=== PATIENT | female | born 1995 | race Caucasian/White ===

== ENCOUNTER 2018-02-26 20:46 | Emergency (ER) | payer SELFPAY, OTHER ==
[2018-02-26] MEDS: PENICILLIN V POTASSIUM 500 MG TAB PO (22:11)
== END 2018-02-26 22:24 | disposition home or self-care (01) ==
LOC: M ED 20:46
DX: J02.0 Streptococcal pharyngitis (principal)
CPT/HCPCS: 87880

== ENCOUNTER 2018-08-23 18:05 | Emergency (ER) | payer SELFPAY ==
[~2018-08-23] VITALS: Ht 160 cm; Wt 81.8 kg
[~2018-08-23 18:05] MED LIST: BCP PO; PENI500T PO
[2018-08-23] MEDS ORDERED: CLEO300C2 PO (18:42)
[2018-08-23] MEDS ORDERED: cefTRIAXone SOD 1 GM VIAL (J0696) IM ONE (18:45)
[2018-08-23] MEDS ORDERED: predniSONE 20 MG TAB PO ONE (18:45)
[2018-08-23] MEDS ORDERED: CLINDAMYCIN 150 MG CAP PO ONE (18:45)
[2018-08-23] MEDS ORDERED: PRED20TA PO (18:47)
[2018-08-23] MEDS ORDERED: LIDOCAINE 1% MDV 20ML VIAL IM ONE (19:00)
[2018-08-23 19:26] VITALS: BP 111/62
== END 2018-08-23 19:30 | disposition home or self-care (01) ==
LOC: M ED 18:05
DX: J36 Peritonsillar abscess (principal)
CPT/HCPCS: 96372; 99283; J0696

== ENCOUNTER 2018-12-13 00:29 | Emergency (ER) | payer BC, MEDICAID, OTHER ==
[~2018-12-13] VITALS: Ht 160 cm; Wt 84.1 kg
[2018-12-13 00:29] VITALS: BP 136/78
[~2018-12-13 00:29] MED LIST changes: +CLEO300C2 PO; +PRED20TA PO
[2018-12-13] MEDS ORDERED: MAGICMW SS (01:19)
[2018-12-13] MEDS ORDERED: PRED20TA PO (01:19)
[2018-12-13] MEDS ORDERED: AMOX500C PO (01:19)
[2018-12-13] MEDS ORDERED: AMOXICILLIN 500 MG CAP PO ONE (01:30)
[2018-12-13] MEDS ORDERED: GI COCKTAIL 50ML BTL(HYOSCYAMINE/MAALOX/LIDOCAINE VISCOUS)(1:3:1) PO ONE (01:30)
[2018-12-13] MEDS ORDERED: predniSONE 20 MG TAB PO ONE (01:30)
[2018-12-13] MEDS ORDERED: METAL LOCK LOOP XX ONE (01:36)
== END 2018-12-13 01:43 | disposition home or self-care (01) ==
LOC: M ED 00:29
DX: J03.90 Acute tonsillitis, unspecified (principal)